=== PATIENT | female | born 1950 | race American Indian/Alaskan Native ===

== ENCOUNTER 2019-01-23 08:47 | Outpatient (CLI) | payer OTHER ==
--- NOTE | 2019-01-23 10:23 | Mammography Report ---
LEFT DIGITAL DIAGNOSTIC MAMMOGRAM WITH CAD CLINICAL: For clip placement after ultrasound biopsy. COMPARISON: Outside images from [place], [place]. FINDINGS: A biopsy clip is now identified at 11:30 o'clock and correlates with the description of a s olid mass at 12:00. IMPRESSION: Concordant clip deployment. Signer Name: Salinas De La Torre MD Signed: 01/23/2019 10:19 AM Workstation Name: [id number]
--- NOTE | 2019-01-23 10:32 | Ultrasound Report ---
ULTRASOUND-GUIDED NEEDLE CORE BIOPSY LEFT BREAST CLINICAL: Solid mass at 12:00 5 cm from the nipple. Comparison images are from [place], [place]. FINDINGS: The previously identified complex partly solid mass was identified at 11:30 o'clock 6 cm fr om the nipple. Informed consent was obtained and a timeout was called. The skin was cleansed with ChloraPrep. Using ultrasound guidance, 1% lidocaine for skin anesthesia and 2% lidocaine with epinephrine for sadie p anesthesia, a 14-gauge needle core biopsy was performed with an Achieve biopsy device. 4 cores were obtained and placed in formalin. A localizer clip was placed within the mass. Hemostasis was achieve d with minimal effort and the wound was closed with Steri-Strips. A sterile dressing was applied. The patient tolerated the procedure well and there were no apparent complications. A two-view mammogram demonstrated concordant clip placement. IMPRESSION: Uncomplicated ultrasound-guided needle biopsy of the left breast. Signer Name: Salinas De La Torre MD Signed: 01/23/2019 10:27 AM Workstation Name: [id number]
== END 2019-01-23 08:48 | disposition home or self-care (01) ==
LOC: SPVWC 08:47
PROVIDERS: ATTEND Internal Medicine
DX: D24.2 Benign neoplasm of left breast (principal)
CPT/HCPCS: 88305; 88341; 88342